=== PATIENT | female | born 1995 | race African-American/Black ===

== ENCOUNTER 2017-04-13 12:01 | Emergency (ER) | payer OTHER ==
[2017-04-13 12:14] LABS: URINE HCG POC HCG NEGATIVE (Negative)
[2017-04-13] MEDS: AZITHROMYCIN 250 MG TABLET. PO (12:44)
[2017-04-13] MEDS: metroNIDAZOLE 500 MG TABLET PO (12:44)
[2017-04-13] MEDS: cefTRIAXone IM 250 MG VIAL IM (12:46)
[2017-04-13 12:52] LABS: BILIRUBIN,URINE NEGATIVE (NEG); GLUCOSE,URINE NEGATIVE (NEG); NITRITE,URINE NEGATIVE (NEG); PH,URINE 6.5; PROTEIN,URINE NEGATIVE (NEG-TRACE)
[2017-04-13 12:59] LABS: BACTERIA,URINE 0 /HPF (0-FEW); SQUAMOUS EPITHELIAL CELL,UR MOD /LPF
[2017-04-16 16:13] LABS: CHLAMYDIA PROBE Positive (Negative)
== END 2017-04-13 13:41 | disposition home or self-care (01) ==
LOC: ER 12:01
DX: Z20.2 Contact with and (suspected) exposure to infections with a predominantly sexual mode of transmission (principal); N76.0 Acute vaginitis; B96.89 Other specified bacterial agents as the cause of diseases classified elsewhere
CPT/HCPCS: 81001; 81025; 87491; 87591; 96372; 99284-25; J0696; Q0111; Q0144

== ENCOUNTER 2018-12-03 02:55 | Emergency (ER) | payer OTHER ==
[~2018-12-03] VITALS: Ht 149.9 cm; Wt 63.5 kg
[~2018-12-03 02:55] MED LIST: METR500T PO
[2018-12-03 03:00] VITALS: BP 144/78
[2018-12-03 03:13] LABS: BILIRUBIN,URINE NEGATIVE (NEG); CLARITY,URINE CLEAR; COLOR,URINE YELLOW; NITRITE,URINE NEGATIVE (NEG); PROTEIN,URINE NEGATIVE (NEG-TRACE); UROBILINOGEN,URINE 0.2 mg/dL (0.2 mg/dL)
[2018-12-03 03:22] LABS: RBC,URINE OCC /HPF (0-2); SQUAMOUS EPITHELIAL CELL,UR MOD /LPF
[2018-12-03 03:26] LABS: BACTERIA,URINE 0 /HPF (0-FEW)
--- NOTE | 2018-12-03 03:34 | PHYS DOC ---
Past Medical History Past Medical History: No Pertinent History Past Surgical History: No Surgical History Alcohol Use: Rarely Drug Use: None Adult General Chief Complaint Chief Complaint: SEXUALLY TRANSMITTED DISEASE HPI HPI Patient is a 23 year old -[place] female with vaginal discharge �2 days. Patient reports concern for possible STD closure. No abdominal pain, flank pain, hematuria. Last menstrual period was one week ago. History of STDs. [] Review of Systems Review of Systems ROS as per HPI All other systems were reviewed and found to be within normal limits, except as documented in this note. Allergies Allergies Allergies Coded Allergies Type Severity Reaction Last Updated Verified No Known Drug Allergies 04/13/17 No Physical Exam Physical Exam Constitutional: Well developed, well nourished, no acute distress, non-toxic appearance. [] HENT: Normocephalic, atraumatic, bilateral external ears normal, oropharynx moist, no oral exudates, nose normal. [] Eyes: PERRLA, EOMI, conjunctiva normal, no discharge. [] Lungs & Thorax: Bilateral breath sounds clear to auscultation [] Abdomen: Bowel sounds normal, soft, no tenderness, no masses, no pulsatile masses. [] Gu: External genitalia normal, thin clear vaginal discharge, no CMT[] Back: No tenderness, no CVA tenderness. [] Current Patient Data Vital Signs Vital Signs Date Time Temp Pulse Resp B/P (MAP) Pulse Ox O2 Delivery O2 Flow Rate FiO2 12/03/18 03:00 98.8 100 16 144/78 (100) 98 Room Air 98.8 Lab Values Laboratory Tests Test 12/03/18 03:00 Urine Collection Type Unknown Urine Color Yellow Urine Clarity Clear Urine pH 6.0 Urine Specific [place] 1.010 Urine Protein Negative mg/dL (NEG-TRACE) Urine Glucose (UA) Negative mg/dL (NEG) Urine Ketones (Stick) Negative mg/dL (NEG) Urine Blood Negative (NEG) Urine Nitrite Negative (NEG) Urine Bilirubin Negative (NEG) Urine Urobilinogen Dipstick 0.2 mg/dL (0.2 mg/dL) Urine Leukocyte Esterase Negative (NEG) Urine RBC Occ /HPF (0-2) Urine WBC 5-10 /HPF (0-4) Urine Squamous Epithelial Cells Mod /LPF Urine Bacteria 0 /HPF (0-FEW) Urine Mucus Slight /LPF POC Urine HCG, Qualitative Hcg negative (Negative) EKG EKG [] Radiology/Procedures Radiology/Procedures [] Course & Med Decision Making Course & Med Decision Making Pertinent Labs and Imaging studies reviewed. (See chart for details) [Patient concern for STD exposure. Empiric treatment given. Patient does not wish to stay for wet prep results. Recommend following up with PCP and/or interviewing clerk for results.] Dragon Disclaimer Dragon Disclaimer This electronic medical record was generated, in whole or in part, using a voice recognition dictation system. Departure Departure Referrals: NO PCP (PCP) ISAI DELGADO DO Dec 03, 2018 03:34
[2018-12-03] MEDS ORDERED: AZITHROMYCIN 250 MG TABLET. PO ONE (03:45)
[2018-12-04 17:09] LABS: GC PROBE Negative (Negative)
== END 2018-12-03 03:46 | disposition home or self-care (01) ==
LOC: ER 02:55
DX: N89.8 Other specified noninflammatory disorders of vagina (principal); Z20.2 Contact with and (suspected) exposure to infections with a predominantly sexual mode of transmission
CPT/HCPCS: 81001; 81025; 87086; 87491; 87591; 99284; Q0111; Q0144

== ENCOUNTER 2020-05-20 13:11 | Emergency (ER) | payer OTHER ==
[~2020-05-20] VITALS: Ht 149.9 cm; Wt 72.0 kg
[2020-05-20 14:13] LABS: BASO % 0 % (0-3); EOS % 0 % (0-3); HEMATOCRIT 40.5 % (36.0-47.0); HEMOGLOBIN 13.7 g/dL (12.0-15.5); LYMPH # 3.3 x10^3/uL (1.0-4.8); LYMPH % 40 % (24-48); MEAN CORPUSCULAR HEMOGLOBIN 31 pg (25-35); MEAN CORPUSCULAR HGB CONC 34 g/dL (31-37); MEAN CORPUSCULAR VOLUME 92 fL (79-100); MONO # 0.7 x10^3/uL (0.0-1.1); MONO % 8 % (0-9); NEUT # 4.3 x10^3/uL (1.8-7.7); NEUT % 52 % (31-73); PLATELET COUNT 308 x10^3/uL (140-400); WHITE BLOOD COUNT 8.3 x10^3/uL (4.0-11.0)
[2020-05-20 14:32] LABS: CALCIUM 9.1 mg/dL (8.5-10.1); CREATININE 0.9 mg/dL (0.6-1.0); GFR 93.9; POTASSIUM 3.6 mmol/L (3.5-5.1)
[2020-05-20 14:35] LABS: BILIRUBIN,URINE NEGATIVE (NEG); CLARITY,URINE CLEAR; COLOR,URINE YELLOW; NITRITE,URINE NEGATIVE (NEG); PH,URINE 6.5 (<5.0-8.0); PROTEIN,URINE NEGATIVE (NEG-TRACE); UROBILINOGEN,URINE 0.2 mg/dL (0.2 mg/dL)
[2020-05-20 14:46] LABS: BACTERIA,URINE 0 /HPF (0-FEW); RBC,URINE 0 /HPF (0-2); WBC,URINE 0 /HPF (0-4)
[2020-05-20 14:48] LABS: BARBITURATES NEG (NEG); BENZODIAZEPINES NEG (NEG); CANNABINOIDS NEG (NEG); COCAINE NEG (NEG); METHADONE NEG (NEG); OPIATES NEG (NEG); PHENCYCLIDINE NEG (NEG)
[2020-05-20 14:49] LABS: AMPHETAMINE/METHAMPHETAMINE POS (NEG)
[2020-05-20] MEDS ORDERED: METR500T PO (15:48)
[2020-05-20] MEDS ORDERED: DOXY100C2 PO (15:48)
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
[2020-05-20 15:57] VITALS: BP 142/77
[2020-05-22 22:08] LABS: GC PROBE Negative (Negative)
== END 2020-05-20 16:07 | disposition home or self-care (01) ==
LOC: ER 13:11
DX: L29.8 Other pruritus (principal); Z76.0 Encounter for issue of repeat prescription; Z20.2 Contact with and (suspected) exposure to infections with a predominantly sexual mode of transmission; R39.15 Urgency of urination; R00.0 Tachycardia, unspecified; F17.200 Nicotine dependence, unspecified, uncomplicated
CPT/HCPCS: 80048; 80307; 81001; 83605; 85025; 87491; 87591; 99284; Q0111